=== PATIENT | male | born 1995 | race Caucasian/White ===

== ENCOUNTER 2017-10-09 14:57 | Emergency (ER) | payer OTHER, BC ==
[2017-10-09] MEDS ORDERED: IBUPROFEN 600 MG TAB PO ONE (15:41)
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
[2017-10-09 16:52] VITALS: BP 142/80
== END 2017-10-09 16:52 | disposition home or self-care (01) ==
LOC: CED 14:57
DX: S13.9XXA Sprain of joints and ligaments of unspecified parts of neck, initial encounter (principal); F17.200 Nicotine dependence, unspecified, uncomplicated; V59.59XA Passenger in pick-up truck or van injured in collision with other motor vehicles in traffic accident, initial encounter; Y92.410 Unspecified street and highway as the place of occurrence of the external cause
CPT/HCPCS: 72125-PO